=== PATIENT | male | born 1980 | race African-American/Black ===

== ENCOUNTER 2023-06-03 16:25 | Outpatient (REF) | payer MEDICAID, SELFPAY ==
[2023-06-03 18:36] LABS: Alanine Aminotransferase 30 U/L (0-40); Albumin Level 4.4 g/dL (3.5-5.0); Alkaline Phosphatase 74 U/L (39-117); Anion Gap 12 (12-20); Aspartate Amino Transferase 23 U/L (5-37); Blood Urea Nitrogen 8 mg/dL (9-16); Calcium 10.1 mg/dL (8.4-10.2); Carbon Dioxide 27 mmol/L (22-29); Chloride 105 mmol/L (96-108); Estimated Glomerular Filt Rate > 60; Glucose Random 83 mg/dL (60-115); Magnesium 2.1 mg/dL (1.6-2.6); Phosphorus 3.9 mg/dL (2.7-4.5); Sodium 140 mmol/L (135-145); Total Protein 7.3 g/dL (6.5-8.0)
[2023-06-03 18:51] LABS: TSH reflex Free T4 3.43 uIU/mL (0.32-4.0)
== END 2023-06-03 16:26 | disposition home or self-care (01) ==
LOC: HO.CHCLDS 16:25
PROVIDERS: Visit Provider Internal Medicine
DX: R00.2 Palpitations (principal)
CPT/HCPCS: 36415; 80053; 83735; 84100; 84443

== ENCOUNTER 2023-06-26 10:41 | Outpatient (REF) | payer MEDICAID, SELFPAY ==
[2023-06-26 14:52] LABS: Vitamin D 25-OH Total 50.1 ng/mL (>30)
[2023-06-26 14:59] LABS: Vitamin B12 490 pg/mL (200-900)
[2023-07-01 14:22] LABS: Testosterone, Free 45.3 pg/mL (35.0-155.0); Testosterone, Total 242 ng/dL (250-1100)
== END 2023-06-26 10:42 | disposition home or self-care (01) ==
LOC: HO.CHCLDS 10:41
PROVIDERS: Visit Provider Student in an Organized Health Care Education/Training Program
DX: E55.9 Vitamin D deficiency, unspecified (principal); R53.83 Other fatigue
CPT/HCPCS: 36415; 82306; 82607; 84402; 84403

== ENCOUNTER 2023-08-05 08:46 | Outpatient (REF) | payer MEDICAID, SELFPAY ==
[2023-08-06 07:24] LABS: Follicle Stimulating Hormone 3.4 mIU/mL (1.4-12.8); Lutenizing Hormone 3.2 mIU/mL (1.5-9.3)
[2023-08-09 18:43] LABS: Testosterone, Free 58.2 pg/mL (35.0-155.0); Testosterone, Total 291 ng/dL (250-1100)
== END 2023-08-05 08:47 | disposition home or self-care (01) ==
LOC: HO.CHCLDS 08:46
PROVIDERS: Visit Provider Internal Medicine
DX: R53.83 Other fatigue (principal)
CPT/HCPCS: 36415; 83001; 83002; 84402; 84403

== ENCOUNTER 2024-02-10 10:30 | Outpatient (AMB) | payer MEDICAID, SELFPAY ==
[2024-02-10 10:41] VITALS: BP 120/66; PULSE 78; O2SAT 99; BMI 33.5
--- NOTE | 2024-02-10 10:41 | MHC.OFFVIS ---
Vital Signs 02/10/24 10:41 Height 5 ft 8 in Weight 220 lb 7.396 oz BMI 33.5 BP 120/66 Blood Pressure Location Lt brachial Position Sitting Pulse 78 Pulse Source Monitor Pulse Oximetry (%) 99 Oxygen Delivery Method Room Air Intake Visit Reasons: LEAD ATHLETE/Arango/Palpitations Allergies amoxicillin Allergy (Unknown, Verified 06/30/15 00:00) Medication List - Last Reconciled 02/10/24 by Phi Barragan MD No Known Home Meds HPI Comments Details: Blanco is here for consultation. He is generally healthy without any major comorbidities. Exercises regularly without limitations. However, he states that he gets a discomfort in the chest in the substernal area. Can happen randomly. Has not noticed it after exercise. Somewhat random occurrence. He also feels heart palpitations, again randomly. Sometimes, he can happen along with the chest discomfort. He states he had a prior Holter for 24 hours which was unremarkable. Otherwise, no known cardiac issues. [facility] Medical History Asthma Family History (Updated 02/10/24 @ 10:58 by Phi Barragan MD) Father No problems noted. Mother No problems noted. Social History Alcohol intake: never Patient Tobacco Use Status: Never used Tobacco Review of Systems Const Denies weakness ENT Denies dizziness Card Denies chest pain, Denies chest pain with activity, Denies syncope, Denies rapid heart rate, Denies pedal edema, Denies edema, Denies leg edema, Denies lightheadedness, Denies palpitations, Denies dyspnea, Denies dyspnea on exertion and Denies orthopnea Resp Denies cough, Denies dyspnea and Denies dyspnea on exertion GI Denies hematochezia and Denies change in stool character Musc Denies abnormal gait, Denies muscle cramps, Denies muscle weakness, Denies numbness, Denies radiating pain into limb and Denies tingling Neuro Denies abnormal gait, Denies dizziness, Denies syncope, Denies numbness, Denies tingling and Denies weakness Endo Denies palpitations Physical Exam Vital Signs: Last Vital Signs Pulse 78 02/10/24 10:41 BP 120/66 02/10/24 10:41 Pulse Ox 99 02/10/24 10:41 Oxygen Delivery Method Room Air 02/10/24 10:41 BMI result Body Mass Index 33.5 Const General: comfortable and no acute distress Orientation/consciousness: patient oriented x3 HEENT Other: Unremarkable Head: Yes normal to inspection Neck Neck: Yes normal visual inspection Chest Chest palpation & inspection: normal inspection of the chest Resp Auscultation: clear to auscultation bilaterally Cardio Palpation: normal PMI Heart sounds: S1 normal heart sound present, S2 normal heart sound present, no gallops, no murmurs and no rubs GI Palpation (GI): Soft to palpation Back/Spine/Pelvis Other: unremarkable Skin General skin exam: no rashes or lesions noted Neuro General: patient oriented x3 Extrem General: Yes normal to inspection Psych Mental Status: mental status grossly normal Office Procedures EKG Details: EKG with sinus rhythm at 78/Min; no significant ST-T changes and otherwise unremarkable[place] [id number], Complete Assessment & Plan Assessment & Plan (1) Precordial chest pain: Code(s): R07.2 - Precordial pain Category: Medical (2) Heart palpitations: Code(s): R00.2 - Palpitations Category: Medical Plan Somewhat atypical sounding symptoms. Can start with an echocardiogram and exercise stress test. With regard to palpitations, possibly 30 day monitor in the future. At this time, he would like to hold off. Orders: Orders CA echo transthoracic complete Today R07.2 - Precordial pain CA echo stress exercise Today R07.2 - Precordial pain Coding Level of Care Code New Pt Level 3 (19848) Diagnoses Precordial chest pain R07.2 Heart palpitations R00.2 CPT Codes EKG - CPT: 75802-[id number], Complete ([id number])
== END 2024-02-10 11:08 | disposition home or self-care (01) ==
PROVIDERS: PCP Family Medicine; Visit Provider Internal Medicine
DX: R07.2 Precordial pain (principal); R00.2 Palpitations
CPT/HCPCS: 93010; 99203

== ENCOUNTER → 2024-02-10 10:30 | Outpatient (BNVA) | payer MEDICAID, SELFPAY | PROVIDERS: PCP Family Medicine; Visit Provider Internal Medicine | DX: R07.2 Precordial pain (principal); R00.2 Palpitations | CPT/HCPCS: 93005; 99202 ==

== ENCOUNTER → 2024-03-04 14:03 | Outpatient (BNV) | payer MEDICAID, SELFPAY | PROVIDERS: PCP Family Medicine; Visit Provider Internal Medicine | DX: R07.2 Precordial pain (principal) | CPT/HCPCS: 93306 ==

== ENCOUNTER → 2024-03-04 14:05 | Outpatient (REF) | payer MEDICAID, SELFPAY | LOC: HO.CARD 14:05 | PROVIDERS: Visit Provider Internal Medicine | DX: Z13.89 Encounter for screening for other disorder (principal) ==

== ENCOUNTER → 2024-03-04 | Outpatient (REF) | payer MEDICAID, SELFPAY ==
--- NOTE | 2024-03-04 14:03 | CA_ITS ---
Transthoracic Echocardiogram Patient (Last, First, Middle): Blanco Rodriguez L Gender: Male Date of : 1980 Age: 43 Procedure Date: 03/04/2024 Procedure Type: Transthoracic Echocardiogram Location: OP Height: 175.26 cm Weight: 99.79 kg BSA: 2.15 m2 Heart Rate: bpm BP: 118 / 76 mmHg Pattern Keeper: TO Referring MD: Phi Barragan MD Symptoms: R07.2 - Precordial pain Study Quality: Fair ECG Rhythm: Sinus Conclusions: - The left ventricular systolic function is normal. The calculated ejection fraction is 59% by biplane method. - No obvious valvular pathology seen on this study. Findings Procedure Information The patient declines contrast. Left Ventricle Normal left ventricular cavity size. There is normal left ventricular wall thickness. The left ventricular systolic function is normal. The calculated ejection fraction is 59% by biplane method. There is no evidence of regional wall motion abnormalities. Diastolic function is normal for age. Right Ventricle Normal right ventricular cavity size and systolic function. Atria Both atria are normal in size. Aortic Valve There is a normal trileaflet aortic valve. There is no aortic valve stenosis. There is no aortic valve regurgitation. Mitral Valve The mitral valve appears normal. There is no mitral valve regurgitation. There is no mitral valve stenosis. Pulmonic Valve The pulmonic valve is likely normal. Tricuspid Valve There is trace tricuspid valve regurgitation. Tricuspid regurgitation envelope is inadequate for calculation of right ventricular systolic pressure. Great Vessels The asc aorta is normal in size. Venous The inferior vena cava is normal in size and collapses greater than 50% with inspiration. Pericardium/Pleural There is no evidence of pericardial effusion. Prior Study Comparison No significant change compared to prior study dated: 06/23/2015. Recommendations, Care & Conclusions No obvious valvular pathology seen on this study. Measurements 2D Linear Measurements IVSd: 0.95 0.6-0.9/0.6-1.0 cm LVIDd: 4.38 3.9-5.3/4.2-5.9 cm LVIDd Index: 2.04 2.4-3.2/2.2-3.1 cm/m2 LVIDs: 2.97 2.0-3.6 cm LVPWd: 0.88 0.7-1.1 cm LA Diam: 3.10 2.7-3.8/3.0-4.0 cm LAIDs Index: 1.44 1.5-2.3 cm/m2 LV Mass: 162.03 67-162/88-224 g LV Mass Index: 75.36 43-95/49-115 g/m2 LVOT Diam: 2.10 3.0+(-)1.3 cm 2D Systolic Function EF 4C: 56.20 >55% EF 2C: 57.60 >55% EF BiP: 58.60 >55% Mitral Valve MV Pk E: 0.47 MV PK A: 0.41 MV Decel Time: 242.00 E/A: 1.10 E'Lateral: 8.92 E'Medial: 8.05 E/E' Med: 5.80 E/E' Lat: 5.20 PHT: 71.00 MVA PHT: 3.10 Decel Cloud: 1.93 Aortic Valve AoV Pk Sumit: 1.00 AoV Mn Sumit: 0.66 AoV VTI: 0.18 AoV Pk Grad: 4.00 Aov Mn Grad: 2.00 SHARATH Cont.VTI: 3.32 LVOT LVOT Pk Sumit: 0.86 LVOT Mn Sumit: 0.57 LVOT VTI: 0.17 LVOT Pk Grad: 3.00 LVOT Mn Grad: 2.00 LVOT Diam: 2.10 LVOT Area: 3.46 Diastolic Function MV Pk E: 0.47 MV Pk A: 0.41 E/A: 1.10 E'Medial: 8.05 E/E' Med: 5.80 E' Laterial: 8.92 E/E' Lat: 5.20 Right Ventricle TAPSE (mm): 22.30 TVS' Sumit: 10.90 Tricuspid Valve RA Press: 3.00 Great Vessels Aorta Sinus of Valsalva: 3.04 2.0-3.5 cm Ao Asc: 2.90 2.1-3.4 cm Ao Arch: 2.50 Updated in Other Vendor System with Status of Final Phi Barragan MD electronically signed on 03/06/2024 1:18:49 PM with status of Final
== END ==
LOC: HO.CARD
PROVIDERS: PCP Family Medicine; Visit Provider Internal Medicine
DX: R07.2 Precordial pain (principal)
CPT/HCPCS: 93306

== ENCOUNTER 2025-08-24 14:55 | Outpatient (REF) | payer MEDICAID, SELFPAY ==
--- OUTSIDE RECORDS SUMMARY | 2025-08-24 09:40 | XMS_ITS | Encounter Summary ---
Author Organization [employer] Address [address] [place] [address] 7 [place] [address] Care Team Providers Care Bread Dough Mixer Name Role Phone Mychal Mckeon MD Primary Care Prov ider Reason for Visit * Reason Comments Cough Encounter Details Date Type Department Care Team ([facility] Contact Info) Description 08/24/2025 9:40 AM EST Office Visit [facility] [address] [place] [address] Gaby Almaraz MD [address] [place] [address] Acute cough (Primary Dx) Social History Tobacco Use Types Packs/Day Years Used Date Smoking Tobacco: Never Passive Smoke Exposure: Never Smokeless Tobacco: Never Alcohol Use Standard Drinks/Week Comments Never 0 (1 standard drink = 0.6 oz pur e alcohol) Depression Answer Date Recorded Patient Health Questionnaire-9 Score 4 01/21/2025 Patient Health Questionnaire-9 Score 4 01/21/2025 Last PHQ-9: Questionnaire Data Not on file 0 01/21/2025 Housing Stability Answer Date Recorded What is your housing situation today? I have gonzalo hoyos 01/21/[address] you li ve. Do you have problems with any of the following? None of the above 01/21/2025 Food Insecurity Answer Date Recorded Within the past 12 months, y ou worried that your food would run out before you got money to buy more: Never True 01/21/2025 Within the past 12 months,th e food you bought just didn't last and you didn't have enough money to get more: Never True 09/2024 Transportation Answer Date Recorded In the past 12 months, has l ack of transportation kept you from medical appts, meetings, work or from getting things needed for daily living? No 01/21/2025 Utilities Answer Date Recorded In the past 12 months, has t he electric, gas, oil or water company threatened to shut off services in your home? No 01/21/2025 Depression Answer Date Recorded Patient Health Questionnaire-2 Score 0 01/21/2025 Internet Access Answer Date Recorded Internet Access Q1 Yes 01/21/2025 Internet Access Q2 Not on file 01/21/2025 Sex and Gender Information Value Date Recorded Sex Assigned at Male 07/23/2022 10:19 AM EDT Legal Sex Male 10:19 AM EDT Gender Identity Male 09/07/2022 9:25 AM EST Sexual Orientation Straight 07/23/2022 10 :19 AM EDT documented as of this encounter Last Filed Vital Signs Vital Sign Reading Time Taken Comments Blood Pressure 134/86 08/24/2025 9:43 AM EST Pulse 80 08/24/2025 9:43 AM EST Temperature 37.1 C (98.8 F) 08/24/2025 9:43 AM EST Respiratory Rate 20 08/24/2025 9:43 AM EST Oxygen Saturation 98% 08/24/2025 9:43 AM EST Inhaled Oxygen Concentration - - Weight 102 kg (224 lb 6.4 oz) 08/24/2025 9:43 AM EST Height 174 cm (5' 8.5 ) 08/24/2025 9:43 AM EST Body Mass Index 33.62 08/24/2025 9:43 AM EST documented in this encounter Plan of Treatment Not on file documented as of this encounter Procedures Procedure Name Priority Date/Time Associated Diagnosis Comments POCT RAPID STREP A Routine 08/24/2025 10 :05 AM EST Acute cough POCT RAPID COVID ANTIGEN Routine 08/24/2025 10:04 AM EST Acute cough POCT INFLUENZA B Routine 08/24/2025 10:0 4 AM EST Acute cough POCT INFLUENZA A Routine 08/24/2025 10:0 3 AM EST Acute cough SARS COV2/INFLUENZA A/B AND RSV RNA QL NAAT Routine 08/24/2025 10:00 AM EST Acute cough documented in this encounter Results * POCT Rapid Strep A OSOM (08/24/2025 10:05 AM EST) [facility] Rapid Strep A Screen Negative Negative, None Detected QC Media Lot # [id number] Lot# Expiration Date Swab 08/24/2025 10:0 5 AM EST us Gaby Almaraz MD POINT OF CARE TEST ENTER/EDIT ORDERABLES Final Result * POCT Rapid Covid-19 BinaxNOW (08/24/2025 10:04 AM EST) [facility] Rapid COVID Ag Negative QC Media Lot # [id number] Lot# Expiration Date Swab 08/24/2025 10:0 4 AM EST Gaby Almaraz MD POINT OF CARE TEST ENTER/EDIT ORDERABLES Final Result * POCT Rapid Influenza B OSOM (08/24/2025 10:04 AM EST) [facility] Rapid Influenza B Ag Negative Negative, Indeterminate QC Media Lot # [id number] Lot# Expiration Date ,027 Swab 08/24/2025 10:0 4 AM EST us Gaby Almaraz MD POINT OF CARE TEST ENTER/EDIT ORDERABLES Final Result * POCT Rapid Influenza A OSOM (08/24/2025 10:03 AM EST) [facility] Rapid Influenza A Ag Negative Negative, Indeterminate QC Media Lot # [id number] Lot# Expiration Date 312,027 Swab Nasopharyngeal structure / Unknown 08/24/2025 10:03 AM EST us Gaby Almaraz MD POINT OF CARE TEST ENTER/EDIT ORDERABLES Final Result * SARS-CoV-2 RNA, Influenza A/B, and RSV RNA, Ql NAAT (08/24/2025 10:00 AM EST) Influenza A PCR NEGATIVE Negative [facility] Influenza B PCR NEGATIVE Negative [facility] Resp Syncy Virus RNA Qual PCR NEGATIVE Negative [facility] SARS COV2 PCR NEGATIVE Negative [facility] Comment:All test results mus t be correlated with clinical findings.Negative results do not preclude SARS-CoV2, influenza Avirus, influenza B virus and/or RSV infectionand should not be used as the sole basis for treatment orother patient management decisions. Negative results must becombined with clinical observations, patient history, andepidemiological information.This test has not been evaluated for monitoring treatment ofinfection.This test has been authorized by the FDA under an EmergencyUse Authorization (EUA) for use by authorized laboratories.Testing performed on the [employer] GeneXpert utilizingreal-time RT-PCR.All SARS CoV2 and positive influenza A/B results arereported to [facility]. Swab Nasopharyngeal washings / Unknown 08/24/2025 10:00 AM EST 08/24/2025 2:56 PM EST Gaby Almaraz MD LAB MICROBIOLOGY - GENERAL OR DERABLES Final Result [facility] [address] [place] [address] [phone] documented in this encounter Visit Diagnoses Diagnosis Acute cough- Primary documented in this encounter Additional Health Concerns Assessment Noted Time PHQ-9 Depression Total Score: 4 01/22/20 25 11:42 AM EDT documented as of this encounter Care Teams Bread Dough Mixer Relationship Specialty Start Date End Date Mychal Mckeon MD [address] [place] [id number] PCP - General Internal Medicine 12/24/19 documented as of this encounter
[2025-08-24 15:45] LABS: Resp Syncy Virus RNA Qual PCR NEGATIVE (Negative); SARS COV2 PCR INHOUSE NEGATIVE (Negative)
--- OUTSIDE RECORDS SUMMARY | 2025-08-24 16:45 | XMS_ITS | Encounter Summary ---
Author Organization [employer] Address [address] [address] Care Team Providers Care Site Acquisition Manager Name Role Phone Mychal Mckeon MD Primary Care Prov ider Reason for Visit * Reason Onset Date Comments Nurse Triage 08/23/2025 Encounter Details Date Type Department Care Team (Late st Contact Info) Description 08/23/2025 Telephone [facility] [address] [place] [address] Mychal Mckeon MD [address] [place] [address] Nurse Triage Social History Tobacco Use Types Packs/Day Years [...] your housing situation today? I have gonzalo romain 01/21/[address] you li [...] AM EDT documented as of this encounter Miscellaneous Notes * Telephone Encounter - Starr Paris RN - 08/23/2025 2:46 PM EST TC placed to pt to reschedule sick on site from 08/23/25. Pt states they would prefer to be seen tomorrow for a visit for their productive cough (greensish sputum), hoarse voice, and mild sore throat.Pt denies fever, chills, chest pain, SOB, vomiting. Pt placed on hold and TC placed to Tiki Reagan, Water Resource Engineering Specialist. No answer. TC placed to Betty Reagan, Administrative Manager Recovery.Betty vazquez process description writer is able to book pt in Same Day Care at [facility] tomorrow. Pt booked for visit on 08/24/25 at 9:00 AM in Same Day Care. Pt agreeable to appointment and denies questions at this time. Protocol Used: Cough (Adult) Protocol-Based Disposition: See in Office or Video Visit Today or Tomorrow Video visit offer not recorded Positive Triage Question: * Patient wants to be seen * All higher-acuity triage questions were negative. Care Advice Discussed: * Reasons To Call Back - Difficulty breathing - Cough lasts more than 3 weeks - Fever lasts more than 3 days - You become worse * Telephone Encounter - Winter Hess - 08/23/2025 2:34 PM EST Tc from pt requesting to reschedule sick on site appointment from 08/23 * Telephone Encounter - Zakia Razo RN - 08/23/2025 9:56 AM EST called pt to triage, spoke to pt. pt states started late on gi with a productive cough. pt states bringing up a lot of greenish sputum with hoarse voice and mild sore throat. pt denies fever, chest pain, vomiting, rash, diarrhea, or other associated symptoms or known exposures. given appttoday with [facility] provider at 4:00 for exam. advised home care: rest, fluids, steam, humidifier, warm saltwater gargles, lozenges, OTC as needed and call back if worsening or new concerns. pt understands and agrees with plan. Protocol Used: Cough (Adult) Protocol-Based Disposition: See in Office or Video Visit Today or Tomorrow Video visit offer not recorded Positive Triage Question: * Patient wants to be seen * All higher-acuity triage questions were negative. Care Advice Discussed: * Reassurance and Education - Cough * Cough Medicines * Coughing Spells * Prevent Dehydration * Avoid Tobacco Smoke * Humidifier * Fever Medicines * Reasons To Call Back - Difficulty breathing - Cough lasts more than 3 weeks - Fever lasts more than 3 days - You become worse * Telephone Encounter - Monie Franco - 08/23/2025 9:31 AM EST Symptom: Cough Outcome: Schedule an appointment to be seen within 24 hours Reason: Caller denied all higher acuity questions The caller accepted this outcome. PCP Dr. Arango documented in this encounter Plan of Treatment Not on file documented as of this encounter Visit Diagnoses Not on filedocumented in this encounter Additional Health Concerns Assessment Noted Time PHQ-9 Depression Total Score: 4 01/22/20 25 11:42 AM EDT documented as of this encounter Care Teams Site Acquisition Manager Relationship Specialty Start Date End Date Mychal Mckeon MD [address] [place] [id number] PCP - General Internal Medicine 12/24/19 documented as of this encounter
--- OUTSIDE RECORDS SUMMARY | 2025-08-24 16:45 | XMS_ITS | Clinical Summary ---
Author Organization [facility] Address [address] [place] [address] Phone Care Team Providers Care Meat Service Team Member Name Role Phone Physician, Pcp Unknown Primary Care Provider Kallie vailable Allergies Active Allergy Reactions Criticality Noted Date Comments Amoxicillin Rash 08/31/2024 Medications albuterol HFA (PROAIR HFA ; PROVENTIL HFA ; VENTOLIN HFA) 90 mcg/actuation inhaler Inhale 2 puffs by mouth every 4 (four) hours if needed for shortness of breath. 1 each Active Active Problems Problem Noted Date Diagnosed Date Asthma Medical History Medical History Date Comments Asthma Social History Tobacco Use Types Packs/Day Years Used Date Smoking Tobacco: Never Smokeless Tobacco: Never Tobacco Cessation:Counseling Given: Not Answered Sex and Gender Information Value Date Recorded Sex Assigned at Not on file Legal Sex Male 6:57 AM EST Gender Identity Not on file Sexual Orientation Not on file Obstetrics History Last Filed Vital Signs Vital Sign Reading Time Taken Comments Blood Pressure 140/101 02/19/2025 3:32 PM EDT Pulse 91 02/19/2025 3:32 PM EDT Temperature 36.8 C (98.2 F) 02/19/2025 12:55 PM EDT Respiratory Rate 16 02/19/2025 3:32 PM EDT Oxygen Saturation 100% 02/19/2025 3:32 PM EDT Inhaled Oxygen Concentration - - Weight 99.8 kg (220 lb) 02/19/2025 12:55 PM EDT Height 175.3 cm (5' 9 ) 02/19/2025 12:55 PM EDT Body Mass Index 32.49 02/19/2025 12:55 PM EDT Plan of Treatment Health Maintenance Due Date Last Done Comments Hepatitis B Vaccines (1 of 3 - 19+ 3-dose series) 2000 Pneumococcal Vaccine: Pediatrics (0 to 5 Years) and At-Risk Patients (6 to 49 Years) (1 of 2 - PCV) 2000 HPV Vaccines (1 - 3-dose SCD M series) 2008 HIV Screening 10/22/2023 Social Influencers of Health Screening 10/22/2023 Depression Screening 09/23/2024 COVID-19 Vaccine (3 - 2024-2 6 season) 2025 06/12/2021, 05/19/2021 Influenza Vaccine (#1) 2025 Cholesterol Screening (Lipid Panel) 01/01/2028 12/31/2022 DTaP,Tdap,and Td Vaccines (2 - Td or Tdap) 02/11/2034 02/12/2024 RSV Immunization Adult Patients (1 - 1-dose 75+ series) 2056 Hepatitis C Screening Completed 12/31/2022 HIB Vaccines Aged Out No longer eligi ble based on patient's age to complete this topic Hepatitis A Vaccines Aged Out No long er eligible based on patient's age to complete this topic IPV Vaccines Aged Out No longer eligi ble based on patient's age to complete this topic MMR Vaccines Aged Out No longer eligi ble based on patient's age to complete this topic Meningococcal ACWY Vaccine Aged Out N o longer eligible based on patient's age to complete this topic Meningococcal B Vaccine Aged Out No l onger eligible based on patient's age to complete this topic RSV Immunization Patients Under 20 months Aged Out No longer eligible b ased on patient's age to complete this topic Varicella Vaccines Aged Out No longer eligible based on patient's age to complete this topic Insurance MEDICAID - [place] Care Teams Meat Service Team Member Relationship Specialty Start Date End Date Physician, Pcp Unknown PCP - General 02/19/25
--- OUTSIDE RECORDS SUMMARY | 2025-08-24 16:45 | XMS_ITS | Encounter Summary ---
Author Organization [employer] Address [address] [facility] [address], [place] [address] Care Team Providers Care Flame Hardening Machine Operator Name Role Phone Mychal Mckeon MD Primary Care Prov ider Reason for Visit * Reason Onset Date Comments Nurse Triage 02/10/2024 Encounter Details Date Type Department Care Team (Late st Contact Info) Description 02/10/2024 Telephone [facility] [address] [place] [address] Mychal Mckeon MD [address] [place] [address] Nurse Triage Social History Tobacco Use Types Packs/Day Years Used Date Smoking Tobacco: Never Passive Smoke Exposure: Never Smokeless Tobacco: Never Alcohol Use Standard Drinks/Week Comments Never 0 (1 standard drink = 0.6 oz pur e alcohol) Depression Answer Date Recorded Patient Health Questionnaire-9 Score 0 06/03/2023 Housing Stability Answer Date Recorded What is your housing situation today? I have gonzalo hoyos 07/08/[address] you li ve. Do you have problems with any of the following? None of the above 07/08/2023 Food Insecurity Answer Date Recorded Within the past 12 months, y ou worried that your food would run out before you got money to buy more: Never True 07/08/2023 Within the past 12 months,th e food you bought just didn't last and you didn't have enough money to get more: Never True Transportation Answer Date Recorded In the past 12 months, has l ack of transportation kept you from medical appts, meetings, work or from getting things needed for daily living? No 07/08/2023 Utilities Answer Date Recorded In the past 12 months, has t he electric, gas, oil or water company threatened to shut off services in your home? No 07/08/2023 Depression Answer Date Recorded Patient Health Questionnaire-2 Score 0 06/03/2023 Sex and Gender Information Value Date Recorded Sex Assigned at Male 07/23/2022 10:19 AM EDT Legal Sex Male 10:19 AM EDT Gender Identity Male 09/07/2022 9:25 AM EST Sexual Orientation Straight 07/23/2022 10 :19 AM EDT documented as of this encounter Miscellaneous Notes * Telephone Encounter - Logan Salinas - 02/10/2024 10:25 AM EDT Symptom: Skin Lump Outcome: Schedule an urgent appointment (within 4 hours) or talk to a nurse or provider soon Reason: Red and larger than 1 inch documented in this encounter Plan of Treatment Not on file documented as of this encounter Visit Diagnoses Not on filedocumented in this encounter Additional Health Concerns Assessment Noted Time PHQ-9 Depression Total Score: 0 06/03/20 23 3:38 PM EDT documented as of this encounter Care Teams Flame Hardening Machine Operator Relationship Specialty Start Date End Date Mychal Mckeon MD [address] [place] [phone] PCP - General Internal Medicine 12/24/19 documented as of this encounter
--- OUTSIDE RECORDS SUMMARY | 2025-08-24 16:45 | XMS_ITS | Clinical Summary ---
Author Organization [employer] Address [address] [place] [address] 7 [place] [address] Care Team Providers Care Classification Officer Name Role Phone Mychal Mckeon MD Primary Care Prov ider Allergies Active Allergy Reactions Criticality Noted Date Comments Amoxicillin Rash Low 09/07/2022 Medications albuterol (2.5 MG/3ML) 0.083% nebulizer solutionIndicati ons:Acute exacerbation of mild persistent extrinsic asthma Take 3 mL (2.5 mg) by nebulization every 4 (four) hours if needed for wheezing. 75 mL 1 2 Active triamcinolone (Kenalog) 0.1 % ointmentIndicati ons:Hand dermatitis Apply topically 2 times daily. 30 g 5 Active fluticasone (Flovent) 110 MCG/ACT inhalerIndicatio ns:Acute exacerbation of mild persistent extrinsic asthma Inhale 1 puff in the morning and at bedtime. Rinse mouth with water after use to reduce aftertaste and incidence of candidiasis. Do not swallow. 12 g 11 5 026 Active albuterol 108 (90 Base) MCG/ACT inhaler Inhale 2 puffs every 6 (six) hours if needed for wheezing or shortness of breath. 18 g 3 5 026 Active Active Problems Problem Noted Date Diagnosed Date Other chest pain 09/01/2024 Assessment & Plan (02/25/2025 2:08 PM EDT): Patient is complaining of chest pain and shortness of breath, he had a stress test back on August which was negative and then was seen recently at er were troponin and workup was negative, will refer to cardiology for evaluation Assessment & Plan (09/01/2024 1:42 PM EST): Patient seen at er yesterday, EKG was unremarkable yesterday and today, patient left AMA yesterday before blood test were done, he was previously seen by cardiology, but lost follow up as he was feeling much better. Will send stress test, has appointment with cardiology on 09/29/23. Dietary counseling 10/30/2023 Assessment & Plan (10/30/2023 8:06 AM EST): Will refer to nutrition services for diet counseling, bmi 33 Palpitation 06/03/2023 Assessment & Plan (10/30/2023 8:06 AM EST): Patient with persistant episode of palpitations, will refer to cardiology for evaluation Assessment & Plan (06/03/2023 5:43 PM EDT): Patient had a holter test this past week, pending results. Will order blood test to evaluate organic causes Mild intermittent asthma without complication Assessment & Plan (01/14/2023 5:59 PM EDT): No further episode of asthma exacerbation reported, continue with albuterol as needed Labs reviewed Acute exacerbation of mild persistent extrinsic asthma 09/07/2022 Assessment & Plan (09/07/2022 12:46 PM EST): Exacerbation likely due to mild viral infection or occupational exposure. Flu and COVID tests today are negative. Will treat with prednisone 60 mg/day x 5 days, start flovent 110 mcg BID with spacer now, albuterol neb/MDI as needed. F/U with PCP [facility] in 2-3 weeks. Resolved Problems Problem Noted Date Diagnosed Date Resolved Date Moderate asthma 09/07/2022 09/07/2022 Encounters Date Type Department Care Team Description 08/24/2025 9:40 AM EST Office Visit [facility] [address] [place] [address] Gaby Almaraz MD Acute cough (Primary Dx) 08/24/2025 Travel 08/23/2025 Telephone [facility] [address] [place] [address] Mychal Mckeon MD Nurse Triage 07/14/2025 Telephone [facility] [address] [place], [place] [phone] Mychal Mckeon MD No Show from Last 3 Months Immunizations Immunization Administration Dates Next Due Pfizer Covid-19 Vaccine 12+ 06/12/2021, Social History Tobacco Use Types Packs/Day Years Used Date Smoking Tobacco: Never Passive Smoke Exposure: Never Smokeless Tobacco: Never Tobacco Cessation:Counseling Given: Not Answered Alcohol Use Standard Drinks/Week Comments Never 0 [...] Orientation Straight 07/23/2022 10 :19 AM EDT Last Filed Vital Signs Vital Sign Reading [...] Mass Index 33.62 08/24/2025 9:43 AM EST Plan of Treatment Health Maintenance Due Date Last Done Comments Disability Screening 1981 Family Planning (PISQ) 1996 HPV Vaccines (1 - Male 3-dos e series) 1996 Hepatitis B Vaccines (1 of 3 - 19+ 3-dose series) 2000 Pneumococcal Vaccine: Pediatrics (0 to 5 Years) and At-Risk Patients (6 to 49) Years (1 of 2 - PCV) 2000 COVID-19 Vaccine (3 - 2024-2 6 season) 2025 06/12/2021, 05/19/2021 Influenza Vaccine (#1) 2025 Alcohol/Substance Use Screening 01/21/2026 01/21/2025 Depression Screening 01/21/2026 01/21/2025, 01/21/2025 SDOH Screening 01/21/2026 01/21/2025 Tobacco Screening 08/24/2026 08/24/2025 Lipid Panel 01/01/2028 12/31/2022 Zoster Vaccines (1 of 2) 2031 DTaP/Tdap/Td Vaccines (2 - T d or Tdap) 02/11/2034 02/12/2024 RSV Patients and Patients Aged 60 years or older (1 - 1-dose 75+ series) 2056 HIV Screening Completed 12/31/2022 Hepatitis C Screening Completed 12/31/2022 HIB Vaccines [...] patient's age to complete this topic Meningococcal Vaccine Aged Out No lukasz afshan eligible based on patient's age to complete this topic RSV under 20 months Aged Out No longe r eligible based on patient's age to complete this topic Rotavirus Vaccines Aged Out No longer eligible based on patient's age to complete this topic Procedures Procedure Name Priority Date/Time Associated Diagnosis [...] Routine 08/24/2025 10:00 AM EST Acute cough HEPATITIS C AB W/REFL TO HCV RNA, QN, PCR Routine 12/31/2022 10:08 AM EDT Acute exacerbation of mild persistent extrinsic asthma HIV 1 RNA, QN PCR W/RFL ANTONINO (RTI,PI,INTEGRASE) Routine 12/31/2022 10:08 AM EDT Acute exacerbation of mild persistent extrinsic asthma LIPID PANEL, STANDARD Routine 12/31/2022 10:08 AM EDT Acute exacerbation of mild persistent extrinsic asthma from Last 3 Months or Most Recently Relevant to Health Maintenance Results * POCT Rapid Strep A OSOM (08/24/2025 10:05 AM EST) [facility] Rapid Strep A Screen Negative Negative, None Detected QC Media Lot # [id number] Lot# Expiration Date , Swab 08/24/2025 10:0 5 AM EST Gaby Almaraz MD POINT OF CARE TEST ENTER/EDIT ORDERABLES Final Result * POCT Rapid Covid-19 BinaxNOW (08/24/2025 10:04 AM EST) [facility] Rapid COVID Ag Negative QC Media Lot # [id number] Lot# Expiration Date , Swab 08/24/2025 10:0 4 AM EST Gaby Almaraz MD POINT OF CARE TEST ENTER/EDIT ORDERABLES Final Result * POCT Rapid Influenza B OSOM (08/24/2025 10:04 AM EST) [facility] Rapid Influenza B Ag Negative Negative, Indeterminate QC Media Lot # [id number] Lot# Expiration Date ,, Swab 08/24/2025 10:0 4 AM EST Result [facility] Gaby Almaraz MD POINT OF CARE TEST ENTER/EDIT ORDERABLES Final Result * POCT Rapid Influenza A OSOM (08/24/2025 10:03 AM EST) [facility] Rapid Influenza A Ag Negative Negative, Indeterminate QC Media Lot # [id number] Lot# Expiration Date , Swab Nasopharyngeal structure / Unknown 08/24/2025 10:03 AM EST us Gaby Almaraz MD POINT OF CARE TEST ENTER/EDIT ORDERABLES Final Result * SARS-CoV-2 RNA, Influenza A/B, and RSV RNA, Ql NAAT (08/24/2025 10:00 AM EST) Influenza A PCR NEGATIVE Negative [facility] Influenza B PCR NEGATIVE Negative [facility] Resp Syncy Virus RNA Qual PCR NEGATIVE Negative [facility] SARS COV2 PCR NEGATIVE Negative [facility] Comment:All test results mus t be [...] use by authorized laboratories.Testing performed on the shop[employer] GeneXpert utilizingreal-time RT-PCR.All SARS CoV2 and positive influenza A/B results arereported to [facility]. Swab Nasopharyngeal washings / Unknown 08/24/2025 10:00 AM EST 08/24/2025 2:56 PM EST us Gaby Almaraz MD LAB MICROBIOLOGY - GENERAL OR DERABLES Final Result [facility] [address] [place] [phone] * HIV-1 RNA, Quantitative, Real-Time PCR with Reflex to Genotype (RTI, PI, Integrase) (12/31/2022 10:08 AM EDT) Pathologist [facility] HIV 1 RNA, QN PCR NOT DETECTED copies/mL [facility], HIV 1 RNA, QN PCR NOT DETECTED Log copies/mL [facility], Comment: REFERENCE RANGE: NOT DETECTED copies/mL NOT DETECTED Log copies/mL This test was performed using Real-Time Polymerase Chain Reaction. Reportable range is 20 to 10,000,000 copies/mL (1.30-7.00 Log copies/mL). 12/31/2022 10:0 8 AM EDT 12/31/2022 10:09 AM EDT Narrative [facility] - 01/03/2023 7:14 PM EDT FASTING:YES FASTING: YES Mychal Zepeda MD LAB BLOOD ORDERABL ES Final Result Performing Organization Address [facility] Co de Phone Number [facility] [address], [place] [address] [employer], [address] [place] [address] * Hepatitis C Antibody with Reflex to HCV, RNA, Quantitative, Real-Time PCR (12/31/2022 10:08 AM EDT) Hepatitis C Antibody NON-REACT HORTENSIA NON-REACT HORTENSIA [employer] [place] [employer] Index 0.06 <1.00 [employer] [place] [employer] Comment: HCV antibody was non-reactive. There is no laboratory evidence of HCV infection. In most cases, no further action is required. However, if recent HCV exposure is suspected, a test for HCV RNA (test code 53981) is suggested. For additional information please refer to http://education.[employer]/faq/SYI31x6 (This link is being provided for informational/ educational purposes only.) Blood Venous blood specimen / Unknown 12/31/2022 10:08 AM EDT 12/31/2022 10:09 AM EDT Narrative [facility] - 01/03/2023 7:14 PM EDT FASTING:YES FASTING: YES Mychal Zepeda MD LAB BLOOD ORDERABL ES Final Result Performing Organization Address City/[facility]/ZIP Co de Phone Number [facility] [address], [facility] [place] [address] [employer] [place] [employer] [address] [place] [address] * Lipid Panel, Standard (12/31/2022 10:08 AM EDT) Cholesterol, Total 140 <200 mg/dL [employer] [place] [employer] HDL Cholesterol 56 > OR = 40 mg/dL [employer] [place] [employer] Triglycerides 52 <150 mg/dL [employer] [place] [employer] LDL Cholesterol 71 mg/dL (calc) [employer] [place] [employer] Comment: Reference range: <100 Desirable range <100 mg/dL for primary prevention; <70 mg/dL for patients with CHD or diabetic patients with > or = 2 CHD risk factors. LDL-C is now calculated using the Sarah calculation, which is a validated novel method providing better accuracy than the Friedewald equation in the estimation of LDL-C. Catarino SS et al. URBAN. 2013;310(19): 4997-4794 (http://education.[employer]esFinder/faq/BOX422) Chol/HDLC Ratio 2.5 <5.0 (calc) [employer] [place] [employer] Non-HDL Cholesterol 84 <130 mg/dL (calc) [employer] [place] [employer] Comment: For patients with diabetes plus 1 major ASCVD risk factor, treating to a non-HDL-C goal of <100 mg/dL (LDL-C of <70 mg/dL) is considered a therapeutic option. Blood Venous blood specimen / Unknown 12/31/2022 10:08 AM EDT 12/31/2022 10:09 AM EDT Narrative [facility] - 01/03/2023 7:14 PM EDT FASTING:YES FASTING: YES us Mychal Zepeda MD LAB BLOOD ORDERABL ES Final Result [facility] [address], [place] [address] [employer] [place] [employer] [address] [place] [address] from Last 3 Months or Most Recently Relevant to Health Maintenance Insurance [employer] Care Teams Classification Officer Relationship Specialty Start Date End Date ArangoMychal Slater MD [address] [place] [phone] PCP - General Internal Medicine 12/24/19
--- OUTSIDE RECORDS SUMMARY | 2025-08-24 16:45 | XMS_ITS | Encounter Summary ---
Author Organization [employer] Address [address] [facility] [address] [place] [address] Care Team Providers Care Tag Meter Operator Name Role Phone Mychal Mckeon MD Primary Care Prov ider Encounter Details Date Type Department Care Team (Late st Contact Info) Description 01/28/2025 Orders Only [facility] [address] [place] [address] Mychal Mckeon MD [address] [place] [address] Social History Tobacco Use Types Packs/Day Years [...] AM EDT documented as of this encounter Plan of Treatment Not on file documented as of this encounter Visit Diagnoses Not on filedocumented in this encounter Additional Health Concerns Assessment Noted Time PHQ-9 Depression Total Score: 4 01/22/20 25 11:42 AM EDT documented as of this encounter Care Teams Tag Meter Operator Relationship Specialty Start Date End Date Mychal Mckeon MD [address] [place] [phone] PCP - General Internal Medicine 12/24/19 documented as of this encounter
--- OUTSIDE RECORDS SUMMARY | 2025-08-24 16:45 | XMS_ITS | Encounter Summary ---
Author Organization [employer] Address [address] [facility] [address] [place] [address] Care Team Providers Care Dressage Judge Name Role Phone Mychal Mckeon MD Primary Care Prov ider Encounter Details Date Type Department Care Team (Latest Contact Info) Description 08/24/2025 Travel Social History Tobacco Use Types Packs/Day Years [...] documented as of this encounter Care Teams Dressage Judge Relationship Specialty Start Date End Date Mychal Mckeon MD [address] [place] [address] PCP - General Internal Medicine 12/24/19 documented as of this encounter
== END 2025-08-24 14:56 | disposition home or self-care (01) ==
LOC: HO.LNP 14:55
PROVIDERS: Visit Provider Family Medicine
DX: R05.1 Acute cough (principal)
CPT/HCPCS: 87637